=== PATIENT | female | born 1995 | race Caucasian/White ===

== ENCOUNTER 2025-01-04 23:50 | Inpatient (IN) | payer OTHER, SELFPAY ==
[2025-01-05 00:23] VITALS: BP 126/85; PULSE 62; RESP 20; TEMP 36.7; O2SAT 100
[2025-01-05 04:46] VITALS: BMI 24.1
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
[2025-01-05 08:00] VITALS: BP 113/59; PULSE 75; RESP 20; TEMP 36.3; O2SAT 99
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
[2025-01-05] MEDS: Nicotine 21 MG PATCH.TD24 TRANSDERMA (11:19)
--- NOTE | 2025-01-05 12:34 | PHA.MEDREC ---
Pharmacy Consult ? Medication Reconciliation Pharmacy has reviewed the medication reconciliation completed by nursing.
[2025-01-05 12:35] VITALS: BP 126/82
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
[2025-01-05 20:00] VITALS: BP 123/84; PULSE 60; RESP 18; TEMP 36; O2SAT 99
[2025-01-06 08:00] VITALS: BP 95/57; PULSE 58; RESP 18; TEMP 36.2; O2SAT 100
[2025-01-06] MEDS: Nicotine 21 MG PATCH.TD24 TRANSDERMA (08:24)
[2025-01-06 08:48] LABS: Alanine Aminotransferase 24 U/L (0-31); Albumin Level 4.4 g/dL (3.5-5.0); Alkaline Phosphatase 42 U/L (39-117); Anion Gap 13 (12-20); Aspartate Amino Transferase 28 U/L (5-31); Blood Urea Nitrogen 14 mg/dL (9-16); Calcium 9.2 mg/dL (8.4-10.2); Carbon Dioxide 27 mmol/L (22-29); Chloride 107 mmol/L (96-108); Cholesterol 159 mg/dL (<200); Creatinine Clr Calc Pharmacy 120.4; Estimated Glomerular Filt Rate > 60; HDL Cholesterol 70 mg/dL (>40); Potassium 4.3 mmol/L (3.3-5.1); Sodium 143 mmol/L (135-145); Total Protein 7.1 g/dL (6.5-8.0); Triglycerides 135 mg/dL (<150)
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
[2025-01-06 12:56] VITALS: BP 121/84
[2025-01-06 21:21] VITALS: BP 108/66
[2025-01-06 21:34] VITALS: BP 108/66; PULSE 78; RESP 18; TEMP 36.9; O2SAT 100
[2025-01-07 08:00] VITALS: BP 107/71; PULSE 64; RESP 20; TEMP 36.7; O2SAT 100
[2025-01-07] MEDS: Nicotine 21 MG PATCH.TD24 TRANSDERMA (09:10)
[2025-01-07] MEDS: guanFACINE HCl ER 1 MG TAB.ER.24H PO (14:08)
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
[2025-01-07 20:17] VITALS: BP 111/73; PULSE 76; RESP 18; TEMP 36.9; O2SAT 100
[2025-01-07 20:40] VITALS: BP 111/73
[2025-01-08 08:00] VITALS: BP 98/55; PULSE 73; RESP 18; TEMP 36.7; O2SAT 100
[2025-01-08] MEDS: Nicotine 21 MG PATCH.TD24 TRANSDERMA (08:33)
[2025-01-08] MEDS: guanFACINE HCl ER 1 MG TAB.ER.24H PO ×2 (08:34→12:54)
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
[2025-01-08 19:53] VITALS: BP 123/75; PULSE 78; RESP 18; TEMP 36.9; O2SAT 100
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
[2025-01-09 07:59] VITALS: BP 123/75; PULSE 78; TEMP 36.9; O2SAT 100
[2025-01-09] MEDS: Nicotine 21 MG PATCH.TD24 TRANSDERMA (09:16)
[2025-01-09] MEDS: guanFACINE HCl ER 2 MG TAB.ER.24H PO (09:16)
[2025-01-09 16:05] VITALS: BP 115/64
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
[2025-01-09 20:00] VITALS: BP 97/55; PULSE 61; RESP 18; TEMP 37.1; O2SAT 100
[2025-01-10 08:00] VITALS: BP 90/51; PULSE 63; RESP 16; TEMP 36.8; O2SAT 100
[2025-01-10] MEDS: Nicotine 21 MG PATCH.TD24 TRANSDERMA (09:08)
[2025-01-10] MEDS: guanFACINE HCl ER 1 MG TAB.ER.24H 3 MG PO (09:11)
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
[2025-01-10 15:17] VITALS: BP 122/74
[2025-01-10 20:00] VITALS: BP 106/58; PULSE 68; RESP 18; TEMP 36.9; O2SAT 100
[2025-01-11 08:00] VITALS: BP 92/56; PULSE 58; RESP 16; TEMP 36.6; O2SAT 100
[2025-01-11] MEDS: guanFACINE HCl ER 1 MG TAB.ER.24H 3 MG PO (09:33)
[2025-01-11] MEDS: Nicotine 21 MG PATCH.TD24 TRANSDERMA (09:33)
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
[2025-01-11 20:00] VITALS: BP 117/55; PULSE 64; RESP 18; TEMP 36.4; O2SAT 100
[2025-01-12 08:00] VITALS: BP 103/60; PULSE 70; TEMP 36.5; O2SAT 99
[2025-01-12] MEDS: Nicotine 21 MG PATCH.TD24 TRANSDERMA (08:57)
[2025-01-12] MEDS: guanFACINE HCl ER 1 MG TAB.ER.24H 3 MG PO (08:57)
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
[2025-01-12 10:18] VITALS: BP 110/60
[2025-01-12 20:00] VITALS: BP 100/62; PULSE 80; RESP 16; TEMP 36.8; O2SAT 100
[2025-01-12 20:38] VITALS: BP 100/62
[2025-01-13 08:00] VITALS: BP 91/55; PULSE 55; RESP 16; TEMP 36.2; O2SAT 98
[2025-01-13] MEDS: Nicotine 21 MG PATCH.TD24 TRANSDERMA (09:35)
[2025-01-13] MEDS: guanFACINE HCl ER 1 MG TAB.ER.24H 3 MG PO (09:36)
[2025-01-13 14:04] VITALS: BP 117/58
[2025-01-13 20:00] VITALS: BP 111/58; PULSE 61; RESP 15; TEMP 37.1; O2SAT 100
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
[2025-01-14 08:00] VITALS: BP 93/54; PULSE 100; RESP 20; TEMP 37.6; O2SAT 97
[2025-01-14] MEDS: guanFACINE HCl ER 1 MG TAB.ER.24H 3 MG PO (08:21)
[2025-01-14] MEDS: Nicotine 21 MG PATCH.TD24 TRANSDERMA (08:22)
[2025-01-14 20:00] VITALS: BP 92/55; PULSE 63; TEMP 36.4; O2SAT 100
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
[2025-01-15 08:00] VITALS: BP 100/55; PULSE 61; TEMP 36.8; O2SAT 99
[2025-01-15] MEDS: Nicotine 21 MG PATCH.TD24 TRANSDERMA (08:36)
[2025-01-15] MEDS: guanFACINE HCl ER 1 MG TAB.ER.24H 3 MG PO (08:37)
--- NOTE | 2025-01-15 09:19 | P.DS_ITS ---
DS: Providers Provider Date of Service: 01/15/25 Date of admission: 01/04/25 23:50 Date of discharge: 01/15/25 Primary care physician: Unknown Physician Attending physician on admission: Naseem Stewart Consults: 01/05/25 02:05 Consult to Hospitalist Routine Comment: Consulting Provider: [facility] Hospitalists Reason For Exam: new admit h&p Attending physician on discharge: Goyo Rodriguez DS: Diagnosis Discharge Diagnosis (1) Medical clearance for psychiatric admission: Status: Acute (2) PTSD (post-traumatic stress disorder): Status: Acute (3) Cocaine use disorder: Status: Acute (4) ADHD: Status: Acute DS: Medications Discharge Medications Home Medications: Previous Rx's ?Medication ?Instructions ?Recorded clonidine HCl 0.1 mg tablet 0.1 mg PO Q4H PRN moderate Anxiety 01/15/25 30 days #90 tabs guanfacine 3 mg tablet,extended 3 mg PO DAILY 30 days #30 tabs 01/15/25 release 24 hr haloperidol 1 mg tablet See Rx Instructions .Route 1 03/17/24 .COMPLEX 30 days #90 tabs hydroxyzine HCl 25 mg tablet 25 mg PO Q6H PRN mild anx iety 30 01/15/25 days #60 tabs lamotrigine 25 mg tablet See Rx Instructions .Route 1 03/17/24 .COMPLEX #54 tabs melatonin 10 mg tablet 10 mg PO BEDTIME PRN sleep 3 0 days 01/15/25 #30 tabs nicotine (polacrilex) 4 mg gum 4 mg buccal Q2H PRN daija otine 01/15/25 cravings 30 days #100 ea nicotine 21 mg/24 hr daily 21 mg transdermal DAILY PRN 01/15/25 transdermal patch smoking cessation 28 days #2 8 ea trazodone 50 mg tablet 50 mg PO BEDTIME PRN Insomni a 30 01/15/25 days #30 tabs DS: Summary Time Spent with Patient Time attestation: Total time managing care of this patient today ____ minutes. Discharge Plan Discharge Anticipated Discharge Date/Time: 01/15/25 11:00 Patient Disposition: Home, Self-Care Discharge Diagnosis: PtSD, chronic with acute exacerbation Referrals: [facility] [Other] - 01/16/25 4:00 pm Referral Note: Follow-up therapy appointment with Saida Poe [Other] - 01/18/25 12:00 pm Referral Note: Follow-up medication management appointment (In Person). [facility] [Other] - 1 Week Referral Note: Your [facility] workers have been updated as to your discharge plan. Please follow-up with your providers in the next 24 hours. [facility] [Other] - 1 Week Referral Note: Please follow up with your [facility] workers with in 24 hours as they have been updated as to your discharge plan. [facility] [Other] - 1 Week Referral Note: Please call Kimberly daily at the number above for placement purposes. Physician,Unknown J [Primary Care Provider, Medical] - 1 Week Discharge Medications: New nicotine 21 mg/24 hr Patch 24 Hour 21 mg transdermal DAILY PRN (Reason: smoking cessation) 28 Days Qty: 28 0RF nicotine (polacrilex) 4 mg gum 4 mg buccal Q2H PRN (Reason: nicotine cravings) 30 Days Qty: 100 0RF haloperidol 1 mg Tablet See Rx Instructions .ROUTE .COMPLEX 30 Days Qty: 90 0RF Rx Instructions: take 1 tab in the morning and one tab at lunchtime; may take 1 additional tab daily as needed for agitation guanfacine 3 mg tablet extended release 24 hr 3 mg PO DAILY 30 Days Qty: 30 0RF hydroxyzine HCl 25 mg Tablet 25 mg PO Q6H PRN (Reason: mild anxiety) 30 Days Qty: 60 0RF lamotrigine 25 mg Tablet See Rx Instructions .ROUTE .COMPLEX Qty: 54 0RF Rx Instructions: take 1 tab at bedtime for 6 more days; then take 2 tabs at bedtime trazodone 50 mg Tablet 50 mg PO BEDTIME PRN (Reason: Insomnia) 30 Days Qty: 30 0RF melatonin 10 mg tablet 10 mg PO BEDTIME PRN (Reason: sleep) 30 Days Qty: 30 0RF Changed clonidine HCl 0.1 mg tablet 0.1 mg PO Q4H PRN (Reason: moderate Anxiety) 30 Days Qty: 90 0RF Discontinued aripiprazole [Abilify] 10 mg tablet 10 mg PO DAILY Discharge Orders: Discharge Order (Routine); Ordered 01/15/25 Ordered By: Goyo Rodriguez Diet: Regular diet Activity on Discharge: As tolerated Stand Alone Forms: Patient Portal Discharge page Print Language: Latvian Care Plan Goals: Maintain mood and safe behaviors Take medications as prescribed Continue to pursue sobriety Practice coping skills Continue with outpatient providers and reach out to them as needed Health Concerns: Mood stability and behaviors Sobriety Plan of Treatment: Follow up with your PCP, psychiatric provider and other outpatient providers regarding above concerns Take medications as prescribed Assessment: Risk assessment at time of discharge:? Patient was interviewed prior to discharge and found to be fully oriented and without any SI or HI. Patient has improved insight and judgment and wants to continue treatment. Patient is not in imminent risk of harm to self or others and has a safety plan that includes presenting to the closest ER or calling 911 if feeling unsafe.? Patient has been observed closely by nursing and unit staff throughout admission; patient has not engaged in any behaviors that suggest dangerousness to self or others and has demonstrated appropriate behaviors and impulse control
[2025-01-15] MEDS: Naloxone HCl Nasal TAKE HOME 4 MG SPRAY 8 MG NOSTRILALT (10:36)
== END 2025-01-15 11:50 | disposition home or self-care (01) | DRG 882 ==
PROVIDERS: Registered Nurse; Admitting Provider Psychiatry & Neurology Psychiatry; Visit Provider Psychiatry & Neurology Psychiatry
DX: F43.11 Post-traumatic stress disorder, acute (principal); R45.851 Suicidal ideations; F14.10 Cocaine abuse, uncomplicated; F90.9 Attention-deficit hyperactivity disorder, unspecified type; F43.12 Post-traumatic stress disorder, chronic; F19.90 Other psychoactive substance use, unspecified, uncomplicated; Z87.891 Personal history of nicotine dependence; Z79.899 Other long term (current) drug therapy
CPT/HCPCS: 36415; 80053; 80061; 83036

== ENCOUNTER → 2025-01-04 23:50 | Outpatient (BNV) | payer OTHER, SELFPAY | PROVIDERS: Admitting Provider Psychiatry & Neurology Psychiatry; Visit Provider Student in an Organized Health Care Education/Training Program | DX: Z00.8 Encounter for other general examination (principal) | CPT/HCPCS: 99223 ==

== ENCOUNTER → 2025-01-04 23:50 | Outpatient (BNV) | payer OTHER, SELFPAY | PROVIDERS: Admitting Provider Psychiatry & Neurology Psychiatry; Visit Provider Psychiatry & Neurology Psychiatry | DX: F14.10 Cocaine abuse, uncomplicated (principal); F43.11 Post-traumatic stress disorder, acute; F90.9 Attention-deficit hyperactivity disorder, unspecified type | CPT/HCPCS: 99232 ==